=== PATIENT | male | born 1990 | race Hispanic/Latino ===

== ENCOUNTER 2018-12-19 20:11 | Inpatient (IN) | payer OTHER ==
--- NOTE | 2018-12-19 21:05 | C.PDOC ---
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 Patient reports he noticed that pain after having sex with his long-time girlfriend, which he did not use protection. No rashes, ulcer or dysuria. No fall or trauma. No stool abnormalities. Patient denies nausea, vomiting, back pain, dysuria, frequency, recent weight loss, bruising, rashes, genital skin changes. Time Seen by Provider: 12/19/18 21:05 Chief Complaint (Nursing): Male Genitourinary History Per: Patient History/Exam Limitations: no limitations Onset/Duration Of Symptoms: Days (1) Current Symptoms Are (Timing): Still Present Quality Of Discomfort: "Pain" Associated Symptoms: denies: Fever, Chills, Nausea, Vomiting, Back Pain, Urinary Symptoms, Other (skin changes) Past Medical History Reviewed: Historical Data, Nursing Documentation, Vital Signs Vital Signs: Last Vital Signs Temp 97.9 F 12/19/18 20:18 Pulse 91 H 12/19/18 20:18 Resp 16 12/19/18 20:18 BP 147/98 H 12/19/18 20:18 Pulse Ox 100 12/19/18 20:18 - Medical History PMH: No Chronic Diseases Other Surgeries: right orchiectomy Family History: States: No Known Family Hx - Social History Hx Alcohol Use: Yes Hx Substance Use: No Review Of Systems Constitutional: Negative for: Fever, Chills Cardiovascular: Negative for: Chest Pain Respiratory: Negative for: Shortness of Breath Gastrointestinal: Negative for: Nausea, Vomiting, Abdominal Pain Genitourinary: Positive for: Other (Groin pain). Negative for: Dysuria, Frequency, Incontinence, Penile Discharge, Rash Skin: Negative for: Rash Physical Exam - Physical Exam Appears: Well, Non-toxic, No Acute Distress Skin: Normal Color, Warm, Dry Head: Atraumatic, Normacephalic Eye(s): bilateral: Normal Inspection, PERRL, EOMI Ear(s): Bilateral: Normal Nose: Normal Oral Mucosa: Moist Tongue: Normal Appearing Lips: Normal Appearing Teeth: Normal Dentition Gingiva: Normal Appearing Throat: Normal, No Erythema, No Exudate Neck: Normal, Normal ROM, Supple Lymphatic: Normal Exam Chest: Symmetrical, No Tenderness Cardiovascular: Rhythm Regular, No Murmur Respiratory: Normal Breath Sounds, No Rales, No Rhonchi, No Wheezing Gastrointestinal/Abdominal: Normal Exam, Soft, No Tenderness, No Guarding, No Re bound Male Genital: Testicular Tenderness (mildly tender to left posterior testicle), No Testicular Swelling, No Inguinal Tenderness, No Inguinal Swelling, No Scrotal Swelling, Other (No mass, hernia, or rash noted) Extremity: Normal ROM, No Calf Tenderness Neurological/Psych: Oriented x3, Normal Speech, Normal Cognition, No Cerebellar Signs, Normal Motor Gait: Steady ED Course And Treatment - Laboratory Results Result Diagrams: 12/19/18 21:23 12/19/18 21:23 O2 Sat by Pulse Oximetry: 100 (RA) Pulse Ox Interpretation: Normal Medical Decision Making Medical Decision Makin yr old male w/ presumed R testicle surgery p/w L testicular pain. No rashes noted. No lymphadenopathy or ulcerations noted. Pt notes having sex with girlfri end prior to pain onset. No signs of trauma noted. ?epididymitis. No hx of STDS. Plan: CMP CBC Tylenol 650mg PO Urinalysis US Testicular IMPRESSION: 1. A solitary normal-appearing testicle is identified in the scrotal sac. It is not certain if it represents the right or left testicle. 2. A 4.0 x 6.7 mm cyst or spermatocele is seen in the head of the epididymis. 3. In the left inguinal region, a 1.6 x 2.6 heterogeneous collection is demonstrated. Abscess cannot be excluded. This corresponds with the patient's complaint as to the region of interest. Talked to Dr. Smith, stated to consult general surgery, no urological intervention needed at this time, states patient should follow-up outpatient. [id number] Appreciate consultation w/ rn residential configuration developer: to see pt [id number] Appreciate consult w/ rn residential: Request VANC / ZOSYN + CT pelvis w/ IV contrast, and medicine admission Pt in NAD, agreeable to plan paged Dr. Santos for admission Disposition - Disposition Disposition Time: 23:59 Condition: STABLE - Clinical Impression Clinical Impression: Abscess, groin
[2018-12-19 21:26] LABS: BASO # 0.1 K/uL (0.0-0.2); BASO % 0.9 % (0.0-2.0); EOS # 0.2 K/uL (0.0-0.7); EOS % 1.5 % (0.0-4.0); HEMOGLOBIN 15.8 g/dL (12.0-18.0); LYMPH # 2.8 K/uL (1.0-4.3); LYMPH % 21.8 % (20.0-40.0); MEAN CORPUSCULAR HEMOGLOBIN 30.8 pg (27.0-31.0); MEAN CORPUSCULAR HGB CONC 33.9 g/dL (33.0-37.0); MEAN PLATELET VOLUME 8.1 fL (7.2-11.7); MONO # 1.1 K/uL (0.0-0.8); MONO % 8.3 % (0.0-10.0); NEUT # 8.8 K/uL (1.8-7.0); NEUT % 67.5 % (50.0-75.0); RBC 5.11 Mil/uL (4.40-5.90); RED CELL DISTRIBUTION WIDTH 12.5 % (11.5-14.5)
[2018-12-19 21:41] LABS: ALB/GLOB RATIO 1.6 (1.0-2.1); ALBUMIN 4.9 g/dL (3.5-5.0); ALT/SGPT 39 U/L (21-72); AST/SGOT 33 U/L (17-59); BLOOD UREA NITROGEN 21 mg/dL (9-20); CALCIUM 9.6 mg/dl (8.6-10.4); GFR NON-AFRICAN AMERICAN > 60
[2018-12-19 22:42] LABS: URINE BILIRUBIN NEGATIVE (NEGATIVE); URINE BLOOD NEGATIVE (NEGATIVE); URINE CLARITY Clear (Clear); URINE COLOR Yellow (YELLOW); URINE GLUCOSE (UA) NORMAL (Normal); URINE PROTEIN NEGATIVE (NEGATIVE); URINE UROBILINOGEN NORMAL mg/dL (0.2-1.0)
[2018-12-19 22:45] LABS: URINE LEUKOCYTE ESTERASE TRACE Leu/uL (Negative)
[2018-12-19] MEDS ORDERED: Sodium Chloride 0.9% 1,000 ML IV ONE (23:03)
[2018-12-19] MEDS ORDERED: Sodium Chloride 0.9% 250 ML IV ONE (23:14)
[2018-12-19 23:33] LABS: VENOUS BLOOD GAS BASE EXCESS -6.2 mmol/L (0.0-2.0); VENOUS BLOOD GAS PCO2 31 mmHg (40-60); VENOUS BLOOD GAS PO2 51 mm/Hg (30-55); VENOUS BLOOD PH 7.37 (7.32-7.43)
[2018-12-19] MEDS ORDERED: Piperacillin/Tazobact 3.375 GM in Sodium Chloride 100 ML IVPB ONE (23:47)
--- NOTE | 2018-12-19 23:58 | CP.PCM.PN ---
Subjective - Date & Time of Evaluation Date of Evaluation: 12/19/18 Time of Evaluation: 23:57 Objective - Vital Signs/Intake and Output Vital Signs (last 24 hours): Temp Pulse Resp BP Pulse Ox 97.9 F 91 H 16 147/98 H 100 12/19/18 20:18 12/19/18 20:18 12/19/18 20:18 12/19/18 20:18 12/19/18 23:22 - Medications Medications: Current Medications Sodium Chloride (Sodium Chloride 0.9%) 1,000 mls @ 250 mls/hr IV .Q4H ONE Stop: 12/20/18 03:02 Last Admin: 12/19/18 23:22 Dose: 250 mls/hr Piperacillin Sod/Tazobactam (Sod 3.375 gm/ Sodium Chloride) 100 mls @ 200 ml s/hr IVPB ONCE ONE; Protocol Stop: 12/20/18 00:16 Vancomycin HCl 1 gm/ Sodium (Chloride) 250 mls @ 166.7 mls/hr IVPB STAT STA; Protocol Stop: 12/20/18 01:15 - Labs Labs: 12/19/18 21:23 12/19/18 21:23
--- NOTE | 2018-12-20 00:07 | CP.PCM.CON ---
<[place]Cy james D - Last Filed: 12/20/18 00:02> History of Present Illness - History of Present Illness History of Present Illness: SURGERY CONSULT NOTE FOR DR. ARELLANO Reason: left groin abscess 28M presents with left groin mass that began 24hrs ago. Patient states he has never had something like this before, admits to pain in that area, admits mass has groin since first noticing it, denies any fevers or chills. He denies any drainage from this site. Patient admits to to engaging in protected sexual intercourse with one partner. Denies any history of STDs, denies any abnormal d rainage from penis. Denies any dysuria. PMH: Denies PSH: Left Orchiectomy Social: denies tobacco, alcohol and illicit drug use Allergies: NKDA Past Patient History - Past Social History Smoking Status: Former Smoker - PSYCHIATRIC Hx Substance Use: No - SURGICAL HISTORY Hx Surgeries: Yes Other/Comment: testicular removal as Meds Allergies/Adverse Reactions: Allergies Allergy/AdvReac Type Severity Reaction Status Date / Time No Known Allergies Allergy Verified 12/19/18 20:20 - Medications Medications: Current Medications Sodium Chloride (Sodium Chloride 0.9%) 1,000 mls @ 250 mls/hr IV .Q4H ONE Stop: 12/20/18 03:02 Last Admin: 12/19/18 23:22 Dose: 250 mls/hr Piperacillin Sod/Tazobactam (Sod 3.375 gm/ Sodium Chloride) 100 mls @ 200 mls/hr IVPB ONCE ONE; Protocol Stop: 12/20/18 00:16 Vancomycin HCl 1 gm/ Sodium (Chloride) 250 mls @ 166.7 mls/hr IVPB STAT STA; Protocol Stop: 12/20/18 01:15 Physical Exam - Constitutional Appears: Non-toxic, No Acute Distress - ENT Exam ENT Exam: Mucous Membranes Moist - Respiratory Exam Respiratory Exam: Clear to Auscultation Bilateral, NORMAL BREATHING PATTERN - Cardiovascular Exam Cardiovascular Exam: REGULAR RHYTHM, +S1, +S2 - GI/Abdominal Exam GI & Abdominal Exam: Soft. absent: Distended, Firm, Guarding, Rebound, Rigid, Tenderness - Extremities Exam Extremities exam: Negative for: pedal edema, tenderness Additional comments: left groin mass approx 3*3cm - erythema, induration on palpation, no fluctance, no active drainage - Neurological Exam Neurological exam: Alert, Oriented x3 - Psychiatric Exam Psychiatric exam: Normal Affect, Normal Mood - Skin Skin Exam: Dry, Intact, Normal Color, Warm Results - Vital Signs Recent Vital Signs: Last Vital Signs Temp 98.0 F 12/19/18 23:20 Pulse 77 12/19/18 23:20 Resp 18 12/19/18 23:20 BP 129/84 12/19/18 23:20 Pulse Ox 100 12/20/18 00:01 - Labs Result Diagrams: 12/19/18 21:23 12/19/18 21:23 Labs: Laboratory Results - last 24 hr 12/19/18 12/19/18 12/19/18 21:23 21:23 22:45 WBC 13.0 H RBC 5.11 Hgb 15.8 Hct 46.5 MCV 91.0 MCH 30.8 MCHC 33.9 RDW 12.5 Plt Count 238 MPV 8.1 Neut % (Auto) 67.5 Lymph % (Auto) 21.8 [place] % (Auto) 8.3 Eos % (Auto) 1.5 Baso % (Auto) 0.9 Neut # (Auto) 8.8 H Lymph # (Auto) 2.8 [place] # (Auto) 1.1 H Eos # (Auto) 0.2 Baso # (Auto) 0.1 pO2 VBG pH VBG pCO2 VBG HCO3 VBG Total CO2 VBG O2 Sat (Calc) VBG Base Excess VBG Potassium Glucose Lactate Crit Value Called To Crit Value Called By Crit Value Read Back Blood Gas Notified Time Sodium 139 Potassium 4.3 Chloride 102 Carbon Dioxide 27 Anion Gap 15 BUN 21 H Creatinine 0.9 Est GFR ( Amer) > 60 Est GFR (Non-Af Amer) > 60 Random Glucose 95 Calcium 9.6 Total Bilirubin 0.6 AST 33 ALT 39 Alkaline Phosphatase 65 Total Protein 8.0 Albumin 4.9 Globulin 3.1 Albumin/Globulin Ratio 1.6 Venous Blood Potassium Urine Color Yellow Urine Clarity Clear Urine pH 5.0 Ur Specific [place] 1.021 Urine Protein Negative Urine Glucose (UA) Normal Urine Ketones Negative Urine Blood Negative Urine Nitrate Negative Urine Bilirubin Negative Urine Urobilinogen Normal Ur Leukocyte Esterase Trace H Urine WBC (Auto) 1 Urine RBC (Auto) < 1 12/19/18 23:28 WBC RBC Hgb Hct MCV MCH MCHC RDW Plt Count MPV Neut % (Auto) Lymph % (Auto) [place] % (Auto) Eos % (Auto) Baso % (Auto) Neut # (Auto) Lymph # (Auto) [place] # (Auto) Eos # (Auto) Baso # (Auto) pO2 51 VBG pH 7.37 VBG pCO2 31 L VBG HCO3 19.7 VBG Total CO2 18.9 L VBG O2 Sat (Calc) 91.3 H VBG Base Excess -6.2 L VBG Potassium 2.5 L* Glucose 61 L Lactate 0.7 Crit Value Called To Dr garcia Crit Value Called By Rossi finley rt Crit Value Read Back Y Blood Gas Notified Time 2332 Sodium 141.0 Potassium Chloride 117.0 H Carbon Dioxide Anion Gap BUN Creatinine Est GFR ( Amer) Est GFR (Non-Af Amer) Random Glucose Calcium Total Bilirubin AST ALT Alkaline Phosphatase Total Protein Albumin Globulin Albumin/Globulin Ratio Venous Blood Potassium 2.5 L* Urine Color Urine Clarity Urine pH Ur Specific [place] Urine Protein Urine Glucose (UA) Urine Ketones Urine Blood Urine Nitrate Urine Bilirubin Urine Urobilinogen Ur Leukocyte Esterase Urine WBC (Auto) Urine RBC (Auto) Assessment & Plan - Assessment and Plan (Free Text) Assessment: 28M presents with left groin abscess, cellulitis Plan: - NPO for now for possible OR in AM upon re-evaluation - IV fluids - Pain control - Patient will require IV antibiotics - Warm compresses to the site - Frequent monitoring of area Further recs discuss with Dr. Shaila Molina, PGY3 <Jordon Arellano - Last Filed: 12/21/18 21:48> Meds - Medications Medications: Current Medications Acetaminophen (Tylenol 325mg Tab) 650 mg PO Q6 PRN PRN Reason: Pain, moderate (4-7) Last Admin: 12/21/18 00:17 Dose: 650 mg Hydromorphone HCl (Dilaudid) 0.5 mg IVP Q4H PRN PRN Reason: Pain, severe (8-10) Piperacillin Sod/Tazobactam (Sod 3.375 gm/ Sodium Chloride) 100 mls @ 200 mls/hr IVPB Q6H [facility]; Protocol Last Admin: 12/21/18 17:55 Dose: 200 mls/hr Vancomycin/Sodium Chloride (Vancomycin 1 Gm/Ns 200 Ml) 1 gm in 200 mls @ 133 mls/hr IVPB Q12H [facility]; Protocol Stop: 12/25/18 06:46 Last Admin: 12/21/18 18:47 Dose: 133 mls/hr Lactated Ringer's (Lactated Ringer's) 1,000 mls @ 100 mls/hr IV .Q10H [facility] Last Admin: 12/21/18 21:21 Dose: 100 mls/hr Influenza Virus Vaccine (Flucelvax Quad [id number] Syr) 60 mcg IM .ONCE ONE Stop: 12/23/18 10:01 Mupirocin (Bactroban Ointment) 1 gm TOP Q8H [facility] Last Admin: 12/21/18 18:46 Dose: 1 applic Pneumococcal Polyvalent Vaccine (Pneumovax 23 Vaccine) 0.5 ml IM .ONCE ONE Stop: 12/22/18 10:01 Results - Vital Signs Recent Vital Signs: Last Vital Signs Temp 98.3 F 12/21/18 16:44 Pulse 83 12/21/18 16:44 Resp 20 12/21/18 16:44 BP 137/80 12/21/18 16:44 Pulse Ox 96 12/21/18 16:44 - Labs Result Diagrams: 12/20/18 11:37 12/20/18 11:37 Attending/Attestation - Attestation I have personally seen and examined this patient.: Yes I have fully participated in the care of the patient.: Yes I have reviewed all pertinent clinical information: Yes Notes (Text): Pt was seen and examined at bedside Agree with above note and assessment Pt with left groin cellulitis and pain Abdomen: Soft, NT, ND Left groin cellulitis, no evidence of abscess Labs and radiology reviewed Ass: Left groin cellulitis, No abscess at present Plan: C.w IV antibiotics CBC, BMP in am Plan d.w pt in detail Risk and benefit explained in detail.
[2018-12-20] MEDS ORDERED: Iodixanol 320 MG/ML 100 ML BOTTLE IV ONE (00:08)
[2018-12-20] MEDS ORDERED: HYDROmorphone 0.5 mg/0.5 ml ISec IVP PRN (00:15)
[2018-12-20 01:14] VITALS: RESP 20
[2018-12-20] MEDS: Piperacillin/Tazobact 3.375 GM in Sodium Chloride 100 ML IVPB SCH ×3 (06:28→17:59)
[2018-12-20] MEDS: Lactated Ringer's 1,000 ML IV SCH ×5 (06:28→21:34)
[2018-12-20] MEDS: Vancomycin 1 gm/NS 200 ml 1 GM/200 ML BAG IVPB SCH ×2 (06:29→18:57)
--- NOTE | 2018-12-20 09:46 | CP.PCM.PN ---
Subjective - Date & Time of Evaluation Date of Evaluation: 12/20/18 Time of Evaluation: 09:45 - Subjective Subjective: Progress note dictated # [id number] Objective - Vital Signs/Intake and Output Vital Signs (last 24 hours): Temp Pulse Resp BP Pulse Ox 98.4 F 79 20 121/76 96 12/20/18 08:17 12/20/18 08:17 12/20/18 08:17 12/20/18 08:17 12/20/18 08:17 Intake and Output: 12/20/18 12/20/18 06:59 18:59 Intake Total 1400 Balance 1400 - Medications Medications: Current Medications Hydromorphone HCl (Dilaudid) 0.5 mg IVP Q4H PRN PRN Reason: Pain, severe (8-10) Piperacillin Sod/Tazobactam (Sod 3.375 gm/ Sodium Chloride) 100 mls @ 200 mls/hr IVPB Q6H [facility]; Protocol Last Admin: 12/20/18 06:28 Dose: 200 mls/hr Vancomycin/Sodium Chloride (Vancomycin 1 Gm/Ns 200 Ml) 1 gm in 200 mls @ 133 mls/hr IVPB Q12H [facility]; Protocol Stop: 12/25/18 06:46 Last Admin: 12/20/18 06:29 Dose: 133 mls/hr Lactated Ringer's (Lactated Ringer's) 1,000 mls @ 200 mls/hr IV .Q5H [facility] Last Admin: 12/20/18 06:28 Dose: 200 mls/hr Influenza Virus Vaccine (Flucelvax Quad [id number] Syr) 60 mcg IM .ONCE ONE Stop: 12/23/18 10:01 Pneumococcal Polyvalent Vaccine (Pneumovax 23 Vaccine) 0.5 ml IM .ONCE ONE Stop: 12/22/18 10:01 - Labs Labs: 12/19/18 21:23 12/19/18 21:23
[2018-12-20 11:42] LABS: BASO # 0.1 K/uL (0.0-0.2); BASO % 0.6 % (0.0-2.0); EOS # 0.2 K/uL (0.0-0.7); EOS % 1.8 % (0.0-4.0); HEMOGLOBIN 14.1 g/dL (12.0-18.0); LYMPH # 1.6 K/uL (1.0-4.3); LYMPH % 16.2 % (20.0-40.0); MEAN CELL VOLUME 92.1 fL (80.0-94.0); MEAN CORPUSCULAR HEMOGLOBIN 31.7 pg (27.0-31.0); MEAN CORPUSCULAR HGB CONC 34.4 g/dL (33.0-37.0); MEAN PLATELET VOLUME 8.4 fL (7.2-11.7); MONO # 0.8 K/uL (0.0-0.8); MONO % 8.4 % (0.0-10.0); NEUT # 7.3 K/uL (1.8-7.0); RBC 4.43 Mil/uL (4.40-5.90); RED CELL DISTRIBUTION WIDTH 12.4 % (11.5-14.5); WHITE BLOOD COUNT 10.1 K/uL (4.8-10.8)
[2018-12-20 12:12] LABS: ALB/GLOB RATIO 1.5 (1.0-2.1); ALBUMIN 4.2 g/dL (3.5-5.0); ALT/SGPT 35 U/L (21-72); AST/SGOT 27 U/L (17-59); BLOOD UREA NITROGEN 13 mg/dL (9-20); GFR NON-AFRICAN AMERICAN > 60
--- NOTE | 2018-12-20 13:00 | CT ---
Date of service: 12/20/2018 PROCEDURE: CT Pelvis with contrast HISTORY: Rule out inguinal abscess COMPARISON: Correlation made with testicular ultrasound obtained 3 11 08 head TECHNIQUE: Contiguous axial images of the pelvis pelvis performed following intravenous injection of approximately 100 cc Visipaque 320 contrast material. Additional 2D sagittal and coronal reformats generated. Radiation dose: Total exam DLP = 1192.46 mGy-cm. This CT exam was performed using one or more of the following dose reduction techniques: Automated exposure control, adjustment of the mA and/or kV according to patient size, and/or use of iterative reconstruction technique. FINDINGS: BLADDER: Unremarkable. No mass. REPRODUCTIVE ORGANS: Unremarkable. VISUALIZED BOWEL: Unremarkable. PERITONEUM: Unremarkable, as visualized. No free fluid. No free air. LYMPH NODES: Unremarkable. No enlarged lymph nodes. VASCULATURE: No aortic atherosclerotic calcification or mural plaque present. BONES: No fracture or focal lesion. OTHER FINDINGS: There is what may represent a left inguinal/scrotal phlegmon and/or abscess which appears to be contiguous with the superior aspect of the left scrotal sac. Surrounding infiltration changes in the adjacent subcutaneous tissues also felt to be present. There are a few small nonspecific bilateral inguinal lymph nodes present... Questionable single testicle Small fat containing umbilical hernia. IMPRESSION: Findings suggestive of a inguinal phlegmon and/or abscess which appears to be contiguous with the left superior margin of the scrotal sac. The. Mild infiltration changes in the adjacent subcutaneous fat consistent with cellulitis. Multiple small nonspecific bilateral inguinal lymph nodes likely reactive. Questionable single testicle
[2018-12-21] MEDS: Piperacillin/Tazobact 3.375 GM in Sodium Chloride 100 ML IVPB SCH ×4 (00:14→17:55)
--- NOTE | 2018-12-21 00:37 | HP ---
CHIEF COMPLAINT: Left groin pain and swelling, progressively getting worse over the past day. HISTORY OF PRESENT ILLNESS: Mr. Villalpando is a 28-year-old young male, without any significant past medical history, who underwent orchiectomy as a child many years ago, came into ED with complaints of left-sided groin swelling for one day. All the history was obtained from the patient. As per the patient, he has been in his usual health, admits to having sexual activity on Saturday night, after that he felt some discomfort. He woke up yesterday morning with swelling minimal and a little discomfort in the left groin region, and he went to work. While he was coming back he started noticing worsening pain and that the swelling was increasing in size and redness increased, which progressively got worse overnight, for which he was evaluated by Urgent Care, and the urgent care people referred him to [facility] for further evaluation. He denies any fever but complaining of tenderness at the swelling site and redness. Denies any headache or dizziness. Denies any chest pain, shortness of breath or wheezing. Denies any nausea, vomiting, abdominal pain, diarrhea or constipation. Denies any other neurologic symptoms. PAST MEDICAL HISTORY: Denies any past medical history. PAST SURGICAL HISTORY: Orchiectomy as a child. FAMILY HISTORY: Hypertension in the mother. PERSONAL HISTORY: He is not , has a girlfriend. 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 SOCIAL HISTORY: He quit smoking three years ago, smoked half a pack per day. Drinks alcohol socially. Denies any other drug abuse. ALLERGIES: NO KNOWN DRUG ALLERGIES. MEDICATIONS: None at home. REVIEW OF SYSTEMS: As described in the history of present illness. All other systems reviewed and were found to be negative. PHYSICAL EXAMINATION: GENERAL: A young, well-built, well-nourished male lying in bed, in no acute distress. VITAL SIGNS: Blood pressure 121/76, pulse 79, respirations 20, temperature 98.4 degrees Fahrenheit, O2 sat 96% on room air. HEENT: Pupils are equal, round and reactive to light and accommodation. Extraocular muscles intact. No icterus. No pallor. No oral thrush. No pharyngeal congestion. NECK: Supple. No JVD. LUNGS: Bilateral vesicular breath sounds. No wheezing. No rhonchi. CARDIOVASCULAR SYSTEM: S1 and S2 present, regular. ABDOMEN: Soft, nontender. Bowel sounds present. No guarding. No rigidity. No rebound tenderness noted. CENTRAL NERVOUS SYSTEM: Alert, awake, oriented x3. No focal deficits noted. EXTREMITIES: No edema. Palpable peripheral pulses. GENITALIA: In the left groin region, there is a small 3 x 3 cm swelling noted with erythema, warm to touch. Tenderness present. No fluctuation noted. It is firm to touch. LABORATORY DATA: Labs done from the emergency room: WBC 13, hemoglobin 15.8, hematocrit 46.5, platelets 238. Sodium 139, potassium 4.3, chloride 102, bicarb 27, BUN 21, creatinine 0.9, glucose 95, calcium 9.6. LFTs within normal limits. Urine negative other than trace leukocyte esterase. No cultures available. Pelvic CT consistent with inguinal phlegmon under abscess, which appears to be contagious at the left superior margin of the scrotal sac, mild infiltration changes in the adjacent subcutaneous fat consistent with cellulitis. Multiple small nonspecific bilateral inguinal lymph nodes, likely reactive. Questionable single testicle. ASSESSMENT AND PLAN: A young male with no significant past medical history other than unilateral orchiectomy done as an infant, here for left groin swelling and pain for one day. Left groin swelling with cellulitis, rule out abscess. Continue with Zosyn 3.375 g intravenously every 6 hours along with vancomycin 1 g intravenously every 12 hours. We will give intravenous fluids, warm compression to the area, pain medication as needed. Follow up with Surgery. president & founder's note appreciated. We will apply topical mupirocin. We will add further recommendation as his clinical course progresses. Chhaya Richards MD
[2018-12-21] MEDS: Lactated Ringer's 1,000 ML IV SCH ×5 (02:45→21:21)
[2018-12-21] MEDS: Vancomycin 1 gm/NS 200 ml 1 GM/200 ML BAG IVPB SCH ×2 (06:49→18:47)
--- NOTE | 2018-12-21 07:11 | CP.PCM.PN ---
<Janette Gallardo - Last Filed: 12/21/18 07:08> Subjective - Date & Time of Evaluation Date of Evaluation: 12/21/18 Time of Evaluation: 07:08 - Subjective Subjective: General surgery progress note for Dr. Linton-Janette Gallardo, PGY-2 Pt seen/examined at bedside Pt reports improved pain at left groin site. Denies F & C, N & V, CP, SOB, other complaints. Objective - Vital Signs/Intake and Output Vital Signs (last 24 hours): Temp Pulse Resp BP Pulse Ox 98.5 F 74 20 133/80 98 12/21/18 00:00 12/21/18 00:00 12/21/18 00:00 12/21/18 00:00 12/21/18 00:00 Intake and Output: 12/21/18 12/21/18 06:59 18:59 Intake Total 2049 Balance 2049 - Medications Medications: Current Medications Acetaminophen (Tylenol 325mg Tab) 650 mg PO Q6 PRN PRN Reason: Pain, moderate (4-7) Last Admin: 12/21/18 00:17 Dose: 650 mg Hydromorphone HCl (Dilaudid) 0.5 mg IVP Q4H PRN PRN Reason: Pain, severe (8-10) Piperacillin Sod/Tazobactam (Sod 3.375 gm/ Sodium Chloride) 100 mls @ 200 mls/hr IVPB Q6H [facility]; Protocol Last Admin: 12/21/18 05:16 Dose: 200 mls/hr Vancomycin/Sodium Chloride (Vancomycin 1 Gm/Ns 200 Ml) 1 gm in 200 mls @ 133 mls/hr IVPB Q12H [facility]; Protocol Stop: 12/25/18 06:46 Last Admin: 12/21/18 06:49 Dose: 133 mls/hr Lactated Ringer's (Lactated Ringer's) 1,000 mls @ 200 mls/hr IV .Q5H [facility] Last Admin: 12/21/18 02:45 Dose: 200 mls/hr Influenza Virus Vaccine (Flucelvax Quad [id number] Syr) 60 mcg IM .ONCE ONE Stop: 12/23/18 10:01 Mupirocin (Bactroban Ointment) 1 gm TOP Q8H [facility] Last Admin: 03/02/19 18:56 Dose: 1 applic Pneumococcal Polyvalent Vaccine (Pneumovax 23 Vaccine) 0.5 ml IM .ONCE ONE Stop: 12/22/18 10:01 - Labs Labs: 12/20/18 11:37 12/20/18 11:37 - Constitutional Appears: Non-toxic, No Acute Distress - Head Exam Head Exam: ATRAUMATIC, NORMAL INSPECTION, NORMOCEPHALIC - Eye Exam Eye Exam: EOMI, Normal appearance - ENT Exam ENT Exam: Mucous Membranes Moist, Normal Exam - Neck Exam Neck Exam: Full ROM - Respiratory Exam Respiratory Exam: NORMAL BREATHING PATTERN - Cardiovascular Exam Cardiovascular Exam: REGULAR RHYTHM, +S1, +S2 - GI/Abdominal Exam GI & Abdominal Exam: Soft - Extremities Exam Additional comments: Left groin with erythematous area, approximately 4 x 6 cm, with fluctuant center and surrounding induration, tender to palpation - Neurological Exam Neurological Exam: Alert, Awake, CN II-XII Intact, Oriented x3 - Psychiatric Exam Psychiatric exam: Normal Affect, Normal Mood - Skin Skin Exam: Dry, Intact, Normal Color, Warm Additional comments: see extremity exam for L groin exam findings Assessment and Plan - Assessment and Plan (Free Text) Assessment: 28M w/L groin abscess Plan: Plan for OR on 3/4 NPO pMN IVF after MN Continue ABx Continue pain control Type and screen Plan to obtain consent for procedure Will DW Dr. Linton <Jordon Linton - Last Filed: 12/21/18 21:49> Objective - Vital Signs/Intake and Output Vital Signs (last 24 hours): Temp Pulse Resp BP Pulse Ox 98.3 F 83 20 137/80 96 12/21/18 16:44 12/21/18 16:44 12/21/18 16:44 12/21/18 16:44 12/21/18 16:44 Intake and Output: 12/21/18 12/22/18 18:59 06:59 Intake Total 2980 Balance 2980 - Medications Medications: Current Medications Acetaminophen (Tylenol 325mg Tab) 650 mg PO Q6 PRN PRN Reason: Pain, moderate (4-7) Last Admin: 12/21/18 00:17 Dose: 650 mg Hydromorphone HCl (Dilaudid) 0.5 mg IVP Q4H PRN PRN Reason: Pain, severe (8-10) Piperacillin Sod/Tazobactam (Sod 3.375 gm/ Sodium Chloride) 100 mls @ 200 mls/ hr IVPB Q6H [facility]; Protocol Last Admin: 12/21/18 17:55 Dose: 200 mls/hr Vancomycin/Sodium Chloride (Vancomycin 1 Gm/Ns 200 Ml) 1 gm in 200 mls @ 133 mls/hr IVPB Q12H [facility]; Protocol Stop: 12/25/18 06:46 Last Admin: 12/21/18 18:47 Dose: 133 mls/hr Lactated Ringer's (Lactated Ringer's) 1,000 mls @ 100 mls/hr IV .Q10H [facility] Last Admin: 12/21/18 21:21 Dose: 100 mls/hr Influenza Virus Vaccine (Flucelvax Quad [id number] Syr) 60 mcg IM .ONCE ONE Stop: 12/23/18 10:01 Mupirocin (Bactroban Ointment) 1 gm TOP Q8H [facility] Last Admin: 12/21/18 18:46 Dose: 1 applic Pneumococcal Polyvalent Vaccine (Pneumovax 23 Vaccine) 0.5 ml IM .ONCE ONE Stop: 12/22/18 10:01 - Labs Labs: 12/20/18 11:37 12/20/18 11:37 Attending/Attestation - Attestation I have personally seen and examined this patient.: Yes I have fully participated in the care of the patient.: Yes I have reviewed all pertinent clinical information, including history, physical exam and plan: Yes Notes (Text): Pt was seen and examined at bedside Agree with above note and assessment Pt with Left groin cellultis Very small abscess present NO open wound C.w IV antibiotics Plan d.w pt in detail Risk and benefit explained in detail.
--- NOTE | 2018-12-21 12:33 | CP.PCM.PN ---
Subjective - Date & Time of Evaluation Date of Evaluation: 12/21/18 Time of Evaluation: 12:33 - Subjective Subjective: Progress note dictated #[id number] Objective - Vital Signs/Intake and Output Vital Signs (last 24 hours): Temp Pulse Resp BP Pulse Ox 98.1 F 78 20 133/78 95 12/21/18 07:00 12/21/18 07:00 12/21/18 07:00 12/21/18 07:00 12/21/18 07:00 Intake and Output: 12/21/18 12/21/18 06:59 18:59 Intake Total 2049 1779 Balance 2049 1779 - Medications Medications: Current Medications Acetaminophen (Tylenol 325mg Tab) 650 mg PO Q6 PRN PRN Reason: Pain, moderate (4-7) Last Admin: 12/21/18 00:17 Dose: 650 mg Hydromorphone HCl (Dilaudid) 0.5 mg IVP Q4H PRN PRN Reason: Pain, severe (8-10) Piperacillin Sod/Tazobactam (Sod 3.375 gm/ Sodium Chloride) 100 mls @ 200 mls/hr IVPB Q6H JIMMY; Protocol Last Admin: 12/21/18 05:16 Dose: 200 mls/hr Vancomycin/Sodium Chloride (Vancomycin 1 Gm/Ns 200 Ml) 1 gm in 200 mls @ 133 mls/hr IVPB Q12H JIMMY; Protocol Stop: 12/25/18 06:46 Last Admin: 12/21/18 06:49 Dose: 133 mls/hr Lactated Ringer's (Lactated Ringer's) 1,000 mls @ 100 mls/hr IV .Q10H JIMMY Influenza Virus Vaccine (Flucelvax Quad 9835-8252 Syr) 60 mcg IM .ONCE ONE Stop: 12/23/18 10:01 Mupirocin (Bactroban Ointment) 1 gm TOP Q8H JIMMY Last Admin: 12/21/18 10:50 Dose: 1 applic Pneumococcal Polyvalent Vaccine (Pneumovax 23 Vaccine) 0.5 ml IM .ONCE ONE Stop: 12/22/18 10:01 - Labs Labs: 12/20/18 11:37 12/20/18 11:37
[2018-12-21 16:45] VITALS: O2SAT 96
--- NOTE | 2018-12-21 17:49 | US ---
Date of service: 12/19/2018 HISTORY: Testicle pain and swelling. Patient gives history of prior testicular resection as a child side of which is uncertain.. TECHNIQUE: Realtime sonography through the scrotum with color and doppler flow. COMPARISON: None Available. FINDINGS: The current study reveals a single testicle possibly the left-side which measures 6.0 x 2.2 x 3.4 cm. This testicle exhibits relatively homogeneous echotexture and arterial flow. The left epididymis measures 0.8 x 1.0 x 1.2 cm and contains a small complex appearing cyst that measures approximately 0.4 x 0.7 x 0.6 cm. This may represent a small spermatocele. There is mild scrotal wall thickening. Complex appearing structure within the subcutaneous tissues left groin adjacent to the superior margin of the scrotum may represent a subcutaneous phlegmon or early abscess. This focus measures approximately 2.6 x 1.6 x 1.7 cm. OTHER FINDINGS: None. IMPRESSION: Single testicle which exhibits arterial flow as above.. 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 Possible small left inguinal phlegmon and/or early abscess as above. Mild scrotal wall thickening.
--- NOTE | 2018-12-21 21:59 | PN ---
DATE: 12/21/2018 SUBJECTIVE: The patient is seen and examined at bedside. The patient offers no new complaints. PHYSICAL EXAMINATION: GENERAL: A young male, lying in bed, in no acute distress. VITAL SIGNS: Blood pressure 137/80, pulse 83, respirations 20, temperature 98.3 degrees Fahrenheit, O2 sat is 96% on room air. HEENT: Pupils equal, round, reacting to light and accommodation. Extraocular muscles intact. No icterus. No pallor. No oral thrush. No pharyngeal congestion. NECK: Supple. No JVD. LUNGS: Bilateral vesicular breath sounds. No wheezing, no rhonchi. CARDIOVASCULAR: S1 and S2 present, regular. ABDOMEN: Soft and nontender. Bowel sounds present. No guarding. No rigidity. No rebound tenderness noted. CENTRAL NERVOUS SYSTEM: Alert, awake, oriented x3. No focal deficits noted. EXTREMITIES: No edema. Palpable peripheral pulses. Left groin abscess with purulent discharge noted. Erythema noted, warm to touch, tenderness present. MEDICATIONS: Include Tylenol as needed, Dilaudid for severe pain, Zosyn 3.375 g IV every 6 hours, and vancomycin 1 g every 12 hours. LABORATORY DATA: No new labs from today. ASSESSMENT AND PLAN: A young male with no significant past medical history, admitted for left groin abscess with cellulitis with purulent drainage. Continue with current antibiotics. Continue with warm compression and topical antibiotics. Discussed with Surgery. Followup with Surgery. If no further surgical recommendation, we will plan discharging the patient home on p.o. antibiotics. Chhaya Richards MD
[2018-12-22] MEDS: Piperacillin/Tazobact 3.375 GM in Sodium Chloride 100 ML IVPB SCH ×3 (00:19→12:14)
[2018-12-22 00:37] VITALS: BP 131/82; PULSE 81; TEMP 97.6
[2018-12-22] MEDS: Lactated Ringer's 1,000 ML IV SCH ×2 (05:03→08:12)
[2018-12-22] MEDS: Vancomycin 1 gm/NS 200 ml 1 GM/200 ML BAG IVPB SCH (06:15)
[2018-12-22 07:10] LABS: BASO # 0.1 K/uL (0.0-0.2); BASO % 0.7 % (0.0-2.0); EOS # 0.4 K/uL (0.0-0.7); EOS % 4.5 % (0.0-4.0); HEMOGLOBIN 13.7 g/dL (12.0-18.0); LYMPH # 2.6 K/uL (1.0-4.3); LYMPH % 29.9 % (20.0-40.0); MEAN CELL VOLUME 92.1 fL (80.0-94.0); MEAN CORPUSCULAR HEMOGLOBIN 31.2 pg (27.0-31.0); MEAN CORPUSCULAR HGB CONC 33.9 g/dL (33.0-37.0); MEAN PLATELET VOLUME 8.2 fL (7.2-11.7); MONO # 0.8 K/uL (0.0-0.8); MONO % 8.8 % (0.0-10.0); NEUT # 4.9 K/uL (1.8-7.0); NEUT % 56.1 % (50.0-75.0); RBC 4.4 Mil/uL (4.40-5.90); RED CELL DISTRIBUTION WIDTH 12.3 % (11.5-14.5); WHITE BLOOD COUNT 8.7 K/uL (4.8-10.8)
[2018-12-22 07:15] LABS: INR 1.3; PROTHROMBIN TIME 14.4 SECONDS (9.7-12.2)
[2018-12-22 07:35] LABS: ALB/GLOB RATIO 1.5 (1.0-2.1); ALT/SGPT 24 U/L (21-72); AST/SGOT 36 U/L (17-59); BLOOD UREA NITROGEN 10 mg/dL (9-20); GFR NON-AFRICAN AMERICAN > 60
--- NOTE | 2018-12-22 08:44 | CP.PCM.PN ---
Subjective - Date & Time of Evaluation Date of Evaluation: 12/22/18 Time of Evaluation: 08:42 - Subjective Subjective: Surgery Progress note- Dr. Linton patient seen and examined at bedside. Left groin abscess spontaneously draining. Patient states pain and burning significantly improved. Induration palpated however significantly improved. + OOB and ambulating. denies fevers, chills, chest pain, shortness of breath, numbness/tingling in extremities Objective - Vital Signs/Intake and Output Vital Signs (last 24 hours): Temp Pulse Resp BP Pulse Ox 97.6 F 81 20 131/82 96 12/22/18 00:00 12/22/18 00:00 12/22/18 00:00 12/22/18 00:00 12/22/18 00:00 Intake and Output: 12/22/18 12/22/18 06:59 18:59 Intake Total 2200 Balance 2200 - Medications Medications: Current Medications Acetaminophen (Tylenol 325mg Tab) 650 mg PO Q6 PRN PRN Reason: Pain, moderate (4-7) Last Admin: 12/21/18 00:17 Dose: 650 mg Hydromorphone HCl (Dilaudid) 0.5 mg IVP Q4H PRN PRN Reason: Pain, severe (8-10) Piperacillin Sod/Tazobactam (Sod 3.375 gm/ Sodium Chloride) 100 mls @ 200 mls/hr IVPB Q6H JIMMY; Protocol Last Admin: 12/22/18 05:20 Dose: 200 mls/hr Vancomycin/Sodium Chloride (Vancomycin 1 Gm/Ns 200 Ml) 1 gm in 200 mls @ 133 mls/hr IVPB Q12H JIMMY; Protocol Stop: 12/25/18 06:46 Last Admin: 12/22/18 06:15 Dose: 133 mls/hr Lactated Ringer's (Lactated Ringer's) 1,000 mls @ 100 mls/hr IV .Q10H JIMMY Last Admin: 12/22/18 08:12 Dose: Not Given Influenza Virus Vaccine (Flucelvax Quad [id number] Syr) 60 mcg IM .ONCE ONE Stop: 12/23/18 10:01 Mupirocin (Bactroban Ointment) 1 gm TOP Q8H JIMMY Last Admin: 12/22/18 03:30 Dose: 1 applic Pneumococcal Polyvalent Vaccine (Pneumovax 23 Vaccine) 0.5 ml IM .ONCE ONE Stop: 12/22/18 10:01 - Labs Labs: 12/22/18 06:54 12/22/18 06:54 PT 14.4 SECONDS (9.7-12.2) H 12/22/18 06:54 INR 1.3 12/22/18 06:54 APTT 30 SECONDS (21-34) 12/22/18 06:54 - Constitutional Appears: Non-toxic, No Acute Distress - Head Exam Head Exam: ATRAUMATIC - Eye Exam Eye Exam: EOMI. absent: Scleral icterus - ENT Exam ENT Exam: Mucous Membranes Moist - Respiratory Exam Respiratory Exam: NORMAL BREATHING PATTERN. absent: Accessory Muscle Use, Respiratory Distress - Cardiovascular Exam Cardiovascular Exam: REGULAR RHYTHM. absent: Bradycardia, Tachycardia - GI/Abdominal Exam GI & Abdominal Exam: Soft. absent: Distended, Firm, Guarding, Rigid, Tenderness - Exam Additional comments: Left Groin abscess draining purulent drainage - Back Exam Back Exam: absent: CVA tenderness (L) - Neurological Exam Neurological Exam: Alert, Awake, Oriented x3 - Psychiatric Exam Psychiatric exam: Normal Affect - Skin Skin Exam: Intact, Warm Assessment and Plan - Assessment and Plan (Free Text) Assessment: 28M w/ Left groin abscess Plan: - draining spontaneously - allow for drainage - cleared for discharge home on PO abx - recommend follow up if abscess worsens or re-accumulates. - no acute surgical intervention at this time - further recs per Dr. Linton Surgical attending PGY2
[2018-12-22] MEDS ORDERED: Pneumococcal 23-Valent Vaccine IM ONE (10:00)
--- NOTE | 2018-12-22 11:30 | CP.PCM.PN ---
Subjective - Date & Time of Evaluation Date of Evaluation: 12/22/18 Time of Evaluation: 11:30 - Subjective Subjective: Discharge summary dictated #[id number] Objective - Vital Signs/Intake and Output Vital Signs (last 24 hours): Temp Pulse Resp BP Pulse Ox 97.6 F 81 20 131/82 96 12/22/18 00:00 12/22/18 00:00 12/22/18 00:00 12/22/18 00:00 12/22/18 00:00 Intake and Output: 12/22/18 12/22/18 06:59 18:59 Intake Total 2200 Balance 2200 - Medications Medications: Current Medications Acetaminophen (Tylenol 325mg Tab) 650 mg PO Q6 PRN PRN Reason: Pain, moderate (4-7) Last Admin: 12/21/18 00:17 Dose: 650 mg Hydromorphone HCl (Dilaudid) 0.5 mg IVP Q4H PRN PRN Reason: Pain, severe (8-10) Piperacillin Sod/Tazobactam (Sod 3.375 gm/ Sodium Chloride) 100 mls @ 200 mls/hr IVPB Q6H JIMMY; Protocol Last Admin: 12/22/18 05:20 Dose: 200 mls/hr Vancomycin/Sodium Chloride (Vancomycin 1 Gm/Ns 200 Ml) 1 gm in 200 mls @ 133 mls/hr IVPB Q12H JIMMY; Protocol Stop: 12/25/18 06:46 Last Admin: 12/22/18 06:15 Dose: 133 mls/hr Lactated Ringer's (Lactated Ringer's) 1,000 mls @ 100 mls/hr IV .Q10H JIMMY Last Admin: 12/22/18 08:12 Dose: Not Given Influenza Virus Vaccine (Flucelvax Quad 5912-1220 Syr) 60 mcg IM .ONCE ONE Stop: 12/23/18 10:01 Mupirocin (Bactroban Ointment) 1 gm TOP Q8H JIMMY Last Admin: 12/22/18 03:30 Dose: 1 applic - Labs Labs: 12/22/18 06:54 12/22/18 06:54 PT 14.4 SECONDS (9.7-12.2) H 12/22/18 06:54 INR 1.3 12/22/18 06:54 APTT 30 SECONDS (21-34) 12/22/18 06:54
--- NOTE | 2018-12-23 08:43 | DS ---
DISCHARGE DIAGNOSES: 1. Right groin abscess, status post spontaneous drainage. 2. Cellulitis. HISTORY OF PRESENT ILLNESS: Mr. Villalpando is a 28-year-old male with no significant past medical history other than orchiectomy as a child, admitted for left-sided groin swelling for one day with pain and redness. Today, the patient is feeling better. Denies any headache, dizziness. Denies any chest pain, shortness of breath, or wheezing. Denies any nausea, vomiting, abdominal pain, diarrhea, or constipation. Denies any urinary complaints. Denies any leg pains or leg cramps. The groin site is much better, less pain, erythema decreased. PHYSICAL EXAMINATION: GENERAL: Young male, lying in bed, in no acute distress. VITAL SIGNS: Blood pressure 131/82, pulse 81, respirations 20, temperature 97.6 degrees Fahrenheit, O2 sat 96% on room air. HEENT: Pupils are equal, round, and reacting to light and accommodation. Extraocular muscles intact. No icterus. No pallor. No oral thrush. No pharyngeal congestion. NECK: Supple. No JVD. LUNGS: Bilateral vesicular breath sounds. No wheezing. No rhonchi. CARDIOVASCULAR SYSTEM: S1, S2 present. Regular. ABDOMEN: Soft and nontender. Bowel sounds present. No guarding. No rigidity. No rebound tenderness noted. CENTRAL NERVOUS SYSTEM: Alert, awake, and oriented x3. No focal deficits noted. EXTREMITIES: No edema. Palpable peripheral pulses. Left groin site; decreased redness, erythema, and still swelling present but decreasing in size. Minimal oozing noted. LABORATORY DATA: From today, WBC 8.7, hemoglobin 13.7, hematocrit 40.5, platelets 240. Sodium 137, potassium 3.7, chloride 103, bicarb 27, BUN 10, creatinine 0.9, glucose 90, calcium 9, phosphorus 4.1, magnesium 2. Total bilirubin 0.6, AST 36, ALT 24, alkaline phosphatase 51, total protein 6.6, albumin 4.2. Pelvic CT consistent with left groin phlegmon versus abscess. Testicular ultrasound single testicle with probable complex spermatocele, proximal small left inguinal phlegmon, early abscess mild scrotal wall thickening. HOSPITAL COURSE: The patient was admitted to the hospital for left groin abscess. The patient was started on IV antibiotics, evaluated by Surgery. He received vancomycin and Zosyn. The abscess opened spontaneously on its own after warm compression and local mupirocin cream application. The patient is feeling much better. The patient is evaluated by Surgery and did not recommend any further surgical intervention as the patient is, otherwise, feeling better and her symptoms are improving. No surgical intervention recommended. The patient is being discharged. I advised the patient to follow up with Surgery and primary care physician and advised to call me if any worsening symptoms or any new symptoms occur. CONDITION UPON DISCHARGE: The patient is alert, awake, and oriented x3, and hemodynamically stable at the time of discharge. DISCHARGE INSTRUCTIONS: Follow up with PMD. Follow up with Surgery. DISCHARGE MEDICATIONS: Augmentin one tablet p.o. b.i.d. for seven days, Bactroban cream apply it to the surgical site three times a day and Bacid one capsule p.o. b.i.d. for seven days. DISCHARGE DIET: Regular diet. ACTIVITY: As tolerated. Chhaya Richards MD
[2018-12-23] MEDS ORDERED: Influenza Vaccine 60 mcg/0.5 mL SYR (4YR UP) IM ONE (10:00)
== END 2018-12-22 14:11 | disposition home or self-care (01) | DRG 603 ==
LOC: C.ER 20:11 → C.3T 23:59
PROVIDERS: ADMIT Internal Medicine; ATTEND Internal Medicine
DX: L02.214 Cutaneous abscess of groin (principal); L03.314 Cellulitis of groin; Z87.891 Personal history of nicotine dependence